=== PATIENT | male | born 1975 | race Two or more races ===

== ENCOUNTER 2020-06-28 13:51 | Observation (INO) | payer OTHER, SELFPAY ==
[2020-06-28] VITALS (14 sets, daily range): BP systolic 104–149; BP diastolic 57–76; PULSE 76–113; RESP 16–34; TEMP 36.7–38.1; O2SAT 92–97
--- NOTE | ~2020-06-28 | XR_ITS ---
XR chest 1V portable 06/28/2020 14:25 Indication: Shortness of breath Procedure: AP portable chest Comparison: 10/29/2017 Findings: There are patchy bilateral infiltrates predominantly affecting the mid and lower lungs. No significant effusion or pneumothorax. Heart size normal. Impression: 1: Patchy bilateral infiltrates, compatible with pneumonia. Reviewed, dictated and finalized at location A. THCARE ARCHITECT Impression: 1: Patchy bilateral infiltrates, compatible with pneumonia.
--- NOTE | ~2020-06-28 | CT_ITS ---
EXAMINATION: CTA chest PE protocol DATE: 06/30/2020 13:28 SIGNAL MAINTAINER HELPER INDICATION: Shortness of breath with chest pain with inspiration. TECHNIQUE: Computed tomographic angiography (CTA) of the chest was performed with 100 mL Omnipaque-35 0 intravenous contrast. The dose-length product was 368.71 mGy-cm. Maximum intensity projection 3D-re constructions of the aorta and other arteries were constructed by the technologist on a separate work station. Automated exposure control and iterative reconstruction technique were employed. COMPARISON: Chest x-ray dated 06/28/2020. FINDINGS: Study limited by motion artifact. No large central pulmonary embolism. Trace pleural effusi ons. Heart size normal. Mildly enlarged mediastinal lymph nodes. Prevascular space lymph node measure s 11 mm short axis. Upper abdomen is unremarkable. There is extensive patchy airspace consolidation, consistent with pneumonia. IMPRESSION: 1. No large central pulmonary embolism. Evaluation of peripheral pulmonary arteries limited by motion artifact. 2: Extensive patchy bilateral airspace consolidation, consistent with pneumonia. 3: Trace pleural effusions. 4: Mediastinal lymphadenopathy, likely reactive. Reviewed, dictated and finalized at location B. AL MAINTAINER HELPER IMPRESSION: 1. No large central pulmonary embolism. Evaluation of peripheral pulmonary nolan shereen limited by motion artifact. 2: Extensive patchy bilateral airspace consolidation, consistent with pneumoni a. 3: Trace pleural effusions. 4: Mediastinal lymphadenopathy, likely reactive.
--- NOTE | 2020-06-28 14:02 | ECG_ITS ---
Measurements Intervals [place] Rate: 93 P: 25 UT: 132 QRS: 30 QRSD: 82 T: 18 QT: 308 QTc: 385 Interpretive Statements SINUS RHYTHM BASELINE WANDER- I, II, III, AVR, AVL, AVF NORMAL ECG Electronically Signed On 06-28-2020 15:52:51 LAUNCH STEWARD by Cornelio Rosario D.O.
--- NOTE | 2020-06-28 14:06 | PC.NURSE ---
provider in room now.
--- NOTE | 2020-06-28 14:15 | ED.GENADULT ---
HPI - General Adult General Chief complaint: Upper Respiratory Infection Stated complaint: Covid Time Seen by Provider: 06/28/20 13:54 Source: patient Mode of arrival: ambulatory Limitations: no limitations History of Present Illness HPI narrative: This patient is a 44 year old Bangladeshi male who presents for evaluation of cough and shortness of breath. He states he developed symptoms on 06/25/20. His symptoms are cough, sore throat, body aches, nausea and shortness of breath. He was evaluated on and he was diagnosed with influenza and COVID. He was started on Tamiflu, albuterol inhaler and medrol dose pack. His symptoms are worsening. He denies vomiting, diarrhea, or chest pain. Related Data Home Medications Medication Instructions Recorded Confirmed Tamiflu 75 mg PO DAILY 06/28/20 06/28/20 albuterol sulfate puff PO Q4-5H PRN 06/28/20 methylprednisolone 4 mg PO TIDWMEAL 06/28/20 06/28/20 Allergies Allergy/AdvReac Type Severity Reaction Status Date / Time No Known Allergies Allergy Verified 06/28/20 18:39 Review of Systems Review of Systems: All systems reviewed & are unremarkable except as noted in HPI and below Constitutional: Constitutional: Reports chills and Reports fever(s) ENT: Reports sore throat Cardiovascular: Cardiovascular: Denies chest pain Respiratory: Respiratory: Reports cough and Reports dyspnea Gastrointestinal: Gastrointestinal: Denies abdominal pain, Denies diarrhea, Reports nausea and Denies vomiting PMFSH Past Medical History Medical History (Updated 06/28/20 @ 22:58 by Alyssa Mcgowan MD) Patient denies medical problems Surgical History Surgical History (Updated 06/28/20 @ 21:02 by Liana Gibson PA-C) No history of previous surgery Family History Family History (Updated 06/28/20 @ 21:02 by Liana Gibson PA-C) Other No significant family history Social History Social History (Updated 06/28/20 @ 21:03 by Liana Gibson PA-C) Social History: Patient lives in [place] with his brother and sister in law. His has recently returned back to [place], where he is from. Lifelong nonsmoker. He drinks perhaps 1 alcoholic beverage a week. No illicit substance use. He designates his brother as his surrogate decision maker and he wishes to be a full code. Substance use: never Spiritual care concerns: No Exam Const: General: alert and ill appearing Orientation/consciousness: patient oriented x3 HENMT: Head: atraumatic Mouth: Yes Normal oral and palatal mucosa present, Yes oropharynx normal and Yes moist mucous membranes Eyes: EOM: EOMs intact bilaterally Chest: Chest palpation & inspection: normal inspection of the chest Resp: Effort & Inspection: no retractions, tachypneic and no use of accessory muscles Auscultation: clear to auscultation bilaterally and no wheezes Cardio: Rate: tachycardic Rhythm: regular rhythm Heart sounds: Murmur heart sound present GI: GI Palp: Yes Soft to palpation, No Tenderness to palpation present (GI) and No Guarding due to palpation present (GI) Auscultation: normal bowel sounds Neuro: General: patient oriented x3, moves all extremities and CN's II-XI intact bilaterally Extrem: General: normal to inspection Course Consultations Consultation #1: I ambulated patient and he was tachypneic with walking. Once back in the bed pulse ox 93 % with HR 120. I Discussed case with Liana iGbson and she accepts patient to medical service for observation. Date: 06/28/20 Time: 15:49 Vital Signs Vital signs: Vital Signs Temperature 100.6 F H 06/28/20 13:54 Pulse Rate 106 H 06/28/20 13:54 Respiratory Rate 28 H 06/28/20 13:54 Blood Pressure 149/71 H 06/28/20 13:54 Pulse Oximetry 96 06/28/20 13:54 Temperature 98.1 F 06/28/20 20:00 Pulse Rate 76 06/28/20 20:00 Respiratory Rate 20 06/28/20 20:00 Blood Pressure 113/76 06/28/20 20:00 Pulse Oximetry 92 06/28/20 20:00
[2020-06-28] MEDS: ALBUTEROL SULFATE (*SP) AEROSOL 1 PUFF 6 PUFF INHALATION ×3 (14:25→20:32)
--- NOTE | 2020-06-28 14:30 | PM.IMHP ---
H&P: HPI History of Present Illness Date/Time: 06/28/20 14:45 Chief Complaint: Increasingly short of breath. Narrative: This is a pleasant 44-year-old male without significant medical problems who presented to the emergency department earlier today via private vehicle with complaints of increasing shortness of breath. Last weekend he was at a wedding and several days thereafter he and many of the guests developed respiratory symptoms to include dry cough, wheezing, sore throat, body aches, and nausea. He reportedly tested positive for COVID-19 and influenza on , 06/25/2020 and was prescribed Tamiflu, a Medrol Dosepak, and inhaler. Unfortunately he has become increasingly more short of breath over the past day or 2, despite taking the steroids and using the inhaler. While not hypoxic in the emergency department he was quite tachypneic, with respiratory rates in the mid to upper 30s with minimal activity and he is being admitted for observation overnight due to concerns of worsening illness. He has not had a fever to his knowledge and denies chest pain, pleuritic pain, palpitations, vomiting, and diarrhea. He is a nonsmoker and has no history of asthma or COPD. Review of Systems Review of Systems: Narrative: Twelve systems were reviewed with pertinent positives and negatives as per HPI. Except as documented, all other systems were reviewed and are negative. [facility] Past Medical History Medical History (Updated 06/28/20 @ 21:06 by Liana Gibson PA-C) Patient denies medical problems Surgical History Surgical History (Updated 06/28/20 @ 21:02 by Liana Gibson PA-C) No history of previous surgery Family History Family History (Updated 06/28/20 @ 21:02 by Liana Gibson PA-C) Other No significant family history Social History Social History (Updated 06/28/20 @ 21:03 by Liana Gibson PA-C) Social History: Patient lives in [place] with his brother and sister in law. His has recently returned back to [facility], where he is from. Lifelong nonsmoker. He drinks perhaps 1 alcoholic beverage a week. No illicit substance use. He designates his brother as his surrogate decision maker and he wishes to be a full code. Substance use: never Spiritual care concerns: No Meds Home Medications and Allergies Allergies Allergy/AdvReac Type Severity Reaction Status Date / Time No Known Allergies Allergy Verified 06/28/20 18:39 Vital Signs Vital Signs - 24 hr 06/28/20 13:54 06/28/20 13:57 06/28/20 13:58 Temperature 100.6 F H Pulse Rate 106 H 108 H 109 H Respiratory Rate 28 H 34 H 32 H Blood Pressure 149/71 H 149/71 H Pulse Oximetry 96 96 96 06/28/20 14:14 06/28/20 14:15 06/28/20 14:30 Temperature Pulse Rate 108 H 102 H 106 H Respiratory Rate 32 H 30 H 27 H Blood Pressure Pulse Oximetry 94 95 06/28/20 14:47 06/28/20 15:00 06/28/20 15:01 Temperature Pulse Rate 98 113 H 109 H Respiratory Rate 27 H 29 H 29 H Blood Pressure 128/68 Pulse Oximetry 94 96 06/28/20 15:31 06/28/20 15:51 06/28/20 16:00 Temperature Pulse Rate Respiratory Rate Blood Pressure Pulse Oximetry 95 92 95 06/28/20 16:40 Temperature 98.0 F Pulse Rate 82 Respiratory Rate 16 Blood Pressure 104/57 L Pulse Oximetry 97 Exam Narrative: Exam Narrative: General: Mildly ill-appearing male in the semi-Simmons position in bed in no distress. Weight: 82 kg. BMI: 30.1. HEENT: PERRL, EOMI. Sclerae anicteric. Oral mucosa a bit tacky. Oropharynx clear. Neck: Supple. No lymphadenopathy or JVD. Respiratory: Tachypneic with minimal activity,, for instance standing up to use the urinal. Mild conversational dyspnea. Crackles heard throughout both lungs with faint expiratory wheezing. Cardiovascular: Regular rate and rhythm with S1-S2. Gastrointestinal: Abdomen is soft, nontender, and nondistended with positive bowel sounds. Skin: Warm and dry. No rash or lesions o
[2020-06-28 14:43] LABS: Basophils Percent Auto 0.2 % (0.2-1.2); Hematocrit 43.3 % (42.0-52.0); Hemoglobin 14.4 g/dL (14.0-18.0); Immature Granulocyte Absolute 0.07 K/mm3 (0.00-0.031); Immature Granulocyte Percent A 0.6 % (0-0.5); Mean Corpuscular HGB Conc 33.3 g/dl (32-36); Mean Corpuscular Hemoglobin 27.9 pg (26-34); Mean Corpuscular Volume 83.9 fl (80-100); Mean Platelet Volume 10.1 fl (7.4-10.4); Monocytes Absolute Auto 0.5 K/mm3 (0.1-0.6); Monocytes Percent Auto 4.6 % (2.6-8.5); Neutrophils Absolute Auto 9.1 K/mm3 (1.3-6.7); Neutrophils Percent Auto 83.6 % (45.5-73.1); Platelet Count Result 343 k/mm3 (150-375); Red Blood Count 5.16 M/mm3 (4.6-6.20); Red Cell Distribution Width 13.2 % (11.5-14.5); White Blood Count 10.9 K/mm3 (4.5-10.0)
[2020-06-28] MEDS: LACTATED RINGERS 1,000 ML 999 ML IV CONT (14:47)
[2020-06-28] MEDS: ONDANSETRON INJ 4 MG/2 ML VIAL IV PUSH (14:47)
--- NOTE | 2020-06-28 14:47 | PC.NURSE ---
patient medicated as ordered. blood cultures drawn and sent to lab. respiratory in room for ABG's and neb treatment. patient will have MDI with spacer at bedside that he is to take home with him on discharge. patient updated on all orders and expected wait time.
[2020-06-28 14:53] LABS: Alanine Aminotransferase 60 U/L (4-50); Albumin Level 4.3 g/dL (3.5-5.1); Alkaline Phosphatase 98 U/L (38-126); Anion Gap 9 mmol/L (8-16); Aspartate Amino Transferase 69 U/L (17-59); Blood Urea Nitrogen 15 mg/dL (9-20); Calcium 9.1 mg/dL (8.4-10.2); Carbon Dioxide 27 mmol/L (22-30); Chloride 100 mmol/L (98-107); Estimated CRCL calculation 117 ml/min; Estimated Glomerular Filt Rate > 60; Glucose 125 mg/dL (75-110); Sodium 136 mmol/L (137-145)
--- NOTE | 2020-06-28 14:53 | PC.NURSE ---
patient's CXR done. shows pneumonia. patient on RA with good sats. no dyspnea seen.
[2020-06-28 14:55] LABS: CRP 8.3 mg/dL (<1.0)
[2020-06-28 14:57] LABS: Alveolar/Arterial O2 Gradient 51.6 mmHg; Base Excess ABG -1.6 mEq/l (+/-2.0); Carboxyhemoglobin 0.4 % THb (0-2.0); Fractional Inspired Oxygen 21 %; HCO3 ABG 21.2 mEq/l (22.0-26.0); Methemoglobin ABG 0.2 %THb (0-1.5); Oxygen Content ABG 16.9 %vol (16.0-22.0); Oxygen Saturation ABG 93.2 % (95.0-100.0); Oxyhemoglobin 91.7 % THb (90.0-100.0); PCO2 ABG 30.4 mmHg (35.0-45.0); PO2 ABG 61.7 mmHg (80.0-100.0); PO2 FiO2 Ratio Arterial Blood 2.94 %; Reduced Hemoglobin 7.7 %THb (0-5.0); Total Hemoglobin 13.1 g/dL (12.0-18.0); pH ABG 7.462 (7.350-7.450)
[2020-06-28 14:58] LABS: Device ROOM AIR; Site Drawn LEFT BRACHIAL
[2020-06-28 15:00] LABS: D Dimer 0.34 ug/mL (<0.48)
[2020-06-28 15:05] LABS: Troponin I < 0.012 ng/mL (0.000-0.034)
[2020-06-28 16:36] LABS: Add Urine Microscopic? YES; Appearance Urine Clear (Clear); Bacteria Urine Trace /hpf; Bilirubin Urine Negative (Negative); Blood Urine Negative (Negative); Color Urine Yellow (Yellow); Glucose Urine UA Negative (Negative); Ketones Urine Negative (Negative); Leukocyte Esterase Ur Negative LEU/UL (Negative); Mucus Urine Rare /lpf; Nitrate Urine Negative (Negative); Protein Urine 1+ mg/dL (Negative); RBC Urine 0-2 /hpf (0-2); Specific Grav Ur 1.024 (1.001-1.035); Urobilinogen Urine Negative mg/dL (<2.0); WBC Urine 0-3 /hpf
--- NOTE | 2020-06-28 17:48 | PC.NURSE ---
This patient, Leeann Briseno, was admitted to [facility] Room 310-01. Patient/family oriented to hospital policies and general routines including ID bracelet, bed and alarms, visiting hours, pain management, procedures, bathroom and other care routines, personal items, smoking policy, room service/diet, and visiting hours. Information on how to activate the Rapid Response Team has been discussed. Patient/Family are encouraged to report perceived risks to care and to ask questions if they do not understand what they are told or what they should do.
[2020-06-28] MEDS: SODIUM CHLORIDE 0.9% IV 1,000 ML 125 ML IV CONT (18:40)
[2020-06-29] VITALS (10 sets, daily range): BP systolic 103–126; BP diastolic 59–71; PULSE 74–103; RESP 16–22; TEMP 36.2–39.6; O2SAT 91–98
[2020-06-29] MEDS: ACETAMINOPHEN 325 MG TABLET 650 MG PO ×2 (00:39→14:38)
[2020-06-29 06:18] LABS: Basophils Percent Auto 0.1 % (0.2-1.2); Hematocrit 36.2 % (42.0-52.0); Hemoglobin 12.1 g/dL (14.0-18.0); Immature Granulocyte Absolute 0.08 K/mm3 (0.00-0.031); Lymphocytes Absolute Auto 1.14 K/mm3 (0.9-3.2); Lymphocytes Percent Auto 13.6 % (18.3-44.2); Mean Corpuscular HGB Conc 33.4 g/dl (32-36); Mean Corpuscular Hemoglobin 27.8 pg (26-34); Mean Corpuscular Volume 83.2 fl (80-100); Mean Platelet Volume 10.2 fl (7.4-10.4); Monocytes Absolute Auto 0.3 K/mm3 (0.1-0.6); Monocytes Percent Auto 4.1 % (2.6-8.5); Neutrophils Absolute Auto 6.8 K/mm3 (1.3-6.7); Neutrophils Percent Auto 81.2 % (45.5-73.1); Platelet Count Result 273 k/mm3 (150-375); Red Blood Count 4.35 M/mm3 (4.6-6.20); White Blood Count 8.4 K/mm3 (4.5-10.0)
[2020-06-29 06:36] LABS: Alanine Aminotransferase 48 U/L (4-50); Albumin Level 3.3 g/dL (3.5-5.1); Alkaline Phosphatase 93 U/L (38-126); Anion Gap 6 mmol/L (8-16); Aspartate Amino Transferase 52 U/L (17-59); Bilirubin,Total 0.8 mg/dL (0.2-1.3); Blood Urea Nitrogen 11 mg/dL (9-20); CRP 8.6 mg/dL (<1.0); Calcium 8.1 mg/dL (8.4-10.2); Carbon Dioxide 24 mmol/L (22-30); Chloride 103 mmol/L (98-107); Estimated CRCL calculation 134 ml/min; Estimated Glomerular Filt Rate > 60; Glucose 118 mg/dL (75-110); Lactate Dehydrogenase 716 U/L (313-618); Potassium 4.2 mmol/L (3.4-5.0); Sodium 133 mmol/L (137-145)
--- NOTE | 2020-06-29 08:00 | PC.NURSE ---
Patient's med rec was filled out at the start of the shift using the medications he had in his personal belongings bag. There were only 3 medications and he stated that they had only been given to him since his initial diagnosis. He denied pain or sob at rest. He stated that he had a severe chill and his temp spiked at 104 degrees. After taking his blankets and administering 650 mg of tylenol, he trended downward to a temp of 98.5 by the end of the shift.
[2020-06-29] MEDS: OSELTAMIVIR PHOSPHATE 75 MG CAPSULE PO (08:58)
[2020-06-29] MEDS: ALBUTEROL SULFATE (*SP) AEROSOL 1 PUFF 6 PUFF INHALATION ×4 (08:58→21:13)
[2020-06-29] MEDS: ENOXAPARIN 40 MG/0.4 ML SYRINGE SUB-Q ×2 (08:58→20:58)
[2020-06-29] MEDS: methylPREDNISolone 4 MG TABLET PO ×2 (08:59→20:59)
[2020-06-29] MEDS: guaiFENesin 12 HR 600 MG TABCR PO ×2 (08:59→20:58)
--- NOTE | 2020-06-29 16:10 | PM.IMPN ---
Progress Note: A&P Assessment and Plan (1) SIRS (systemic inflammatory response syndrome): Code(s): R65.10 - Systemic inflammatory response syndrome (SIRS) of non-infectious origin without acute organ dysfunction Status: Acute Assessment and Plan: The patient meets criteria for sirs in the setting of fever, tachycardia, tachypnea, with having positive influenza and COVID-19. He had a fever 103 this morning. Continue p.r.n. Tylenol and monitoring vital signs. He will have to be afebrile for 24-48 hours prior to considering discharge. (2) COVID-19: Code(s): U07.1 - COVID-19 Status: Acute Assessment and Plan: Patient reports having positive for post COVID and influenza this past 06/25/2020. I will ask for records for confirmation of this diagnosis and in the interim he has been started on empiric antibiotics given bilateral pneumonia. I will continue with his Medrol Dosepak and rescue inhaler. Incentive spirometer DuoNebs have also been scheduled q.6 hours. Mucinex and Cornet to help mobilize secretions. At this time he would not be a candidate for dexamethasone or remdesivir as he is not hypoxic, however we do not yet have confirmation that he indeed tested positive for COVID. Due to his tachypnea with just even sitting up in bed, a ordered some orthostatics to be done we can monitor his blood pressure, heart rate and oxygen saturations with laying, sitting, standing, and walking around the room. Want to ensure he is not hypoxic with exertion. Continue monitoring. P.r.n. Tylenol. (3) Influenza: Code(s): J11.1 - Influenza due to unidentified influenza virus with other respiratory manifestations Status: Acute Assessment and Plan: See above. (4) Bilateral pneumonia: Code(s): J18.9 - Pneumonia, unspecified organism Status: Acute Assessment and Plan: See above. Time Spent With Patient Time with patient: 25 - 35 minutes Subjective Date/time seen: 06/29/20 16:10 Interval history: Date of Service 06/29/20: Patient reports intermittent fevers every few hours. Tylenol has been helping. He does report some shortness of breath with any movement, even sitting up in bed. It takes him a couple seconds to catch his breath and then he is able to breathe easier. He states he is unable to hold his breath secondary to some discomfort and SOB. He does have a dry cough, loss of taste, smell, and feels very thirsty. He denies any nausea, vomiting, abdominal pain, leg swelling, calf pain or any other symptoms at this time. Review of Systems Review of Systems: All systems reviewed & are unremarkable except as noted in HPI and below Exam Narrative: Exam Narrative: General: 44-year-old man laying flat in bed, resting. Appears comfortable. In no acute distress. Skin: No jaundice or cyanosis. Good skin turgor. Neck: Full range of motion. Supple. Respiratory: Appears comfortable wall laying in bed, non tachypneic. When he sits up in bed he does become tachypneic and appears to be uncomfortable with his breathing but after a few seconds it becomes easier. Lungs are clear to auscultation bilaterally. No wheezing, rales or rhonchi. No bony chest wall tenderness. Cardiovascular: The heart has a regular rate and rhythm without murmur. Lower extremities: No lower extremity edema. Distal pulses are easily palpated. No calf tenderness to palpation. Gastrointestinal: The abdomen is soft, nontender and nondistended with active bowel sounds. Psychiatric: Lucid and oriented. Memory intact. Neurologic: No focal deficits. Speech is clear. No facial drooping. Objective Data Vital Signs Vital Signs: Vital Signs - 24 hr 06/28/20 16:40 06/28/20 20:00 06/29/20 00
[2020-06-30] VITALS: BP 98/53; PULSE 77; RESP 16; TEMP 36.5; O2SAT 100
[2020-06-30 04:00] VITALS: BP 96/56; PULSE 80; RESP 16; TEMP 36.9; O2SAT 96
[2020-06-30 07:36] LABS: Hematocrit 36.7 % (42.0-52.0); Hemoglobin 12.3 g/dL (14.0-18.0); Mean Corpuscular HGB Conc 33.5 g/dl (32-36); Mean Corpuscular Hemoglobin 27.5 pg (26-34); Mean Corpuscular Volume 81.9 fl (80-100); Mean Platelet Volume 10.5 fl (7.4-10.4); Platelet Count Result 312 k/mm3 (150-375); Red Blood Count 4.48 M/mm3 (4.6-6.20); Red Cell Distribution Width 12.9 % (11.5-14.5); White Blood Count 5.6 K/mm3 (4.5-10.0)
[2020-06-30 07:37] LABS: Alanine Aminotransferase 49 U/L (4-50); Albumin Level 3.4 g/dL (3.5-5.1); Alkaline Phosphatase 95 U/L (38-126); Anion Gap 6 mmol/L (8-16); Aspartate Amino Transferase 45 U/L (17-59); Bilirubin,Total 0.5 mg/dL (0.2-1.3); Blood Urea Nitrogen 11 mg/dL (9-20); CRP 8.6 mg/dL (<1.0); Calcium 8.4 mg/dL (8.4-10.2); Carbon Dioxide 25 mmol/L (22-30); Chloride 104 mmol/L (98-107); Estimated CRCL calculation 158 ml/min; Estimated Glomerular Filt Rate > 60; Glucose 120 mg/dL (75-110); Lactate Dehydrogenase 639 U/L (313-618); Potassium 4.4 mmol/L (3.4-5.0); Sodium 135 mmol/L (137-145)
[2020-06-30 08:00] VITALS: BP 102/60; PULSE 76; RESP 16; TEMP 36.4; O2SAT 95; O2SAT 97
[2020-06-30 08:54] VITALS: O2SAT 98
[2020-06-30] MEDS: guaiFENesin 12 HR 600 MG TABCR PO (09:45)
[2020-06-30] MEDS: OSELTAMIVIR PHOSPHATE 75 MG CAPSULE PO (09:45)
[2020-06-30] MEDS: ENOXAPARIN 40 MG/0.4 ML SYRINGE SUB-Q (09:45)
[2020-06-30] MEDS: methylPREDNISolone 4 MG TABLET PO (09:47)
[2020-06-30] MEDS: ALBUTEROL SULFATE (*SP) AEROSOL 1 PUFF 6 PUFF INHALATION ×2 (09:47→12:00)
--- NOTE | 2020-06-30 11:20 | PM.DS ---
DS: Admitting Diagnosis Admitting Diagnosis Admitting Diagnosis: COVID 19 pneumonia, Influenza DS: Discharge Diagnosis Discharge Diagnosis (1) SIRS (systemic inflammatory response syndrome): Code(s): R65.10 - Systemic inflammatory response syndrome (SIRS) of non-infectious origin without acute organ dysfunction Status: Acute Assessment and Plan: The patient meets criteria for sirs in the setting of fever, tachycardia, tachypnea. Respiratory as suspected source with positive COVID and Flu B per PCP records; these are rapid tests, thus they do not have documentation other than from their notes. Tachycardia, tachypnea, and fevers have improved Continue supportive care and treatment for Flu with Tamiflu F/u with PCP (2) COVID-19: Code(s): U07.1 - COVID-19 Status: Acute Assessment and Plan: With evidence of pneumonia on CXR. He is not hypoxic and tolerating RA at this time. Patient reports having positive for post COVID and influenza this past 06/25/2020. PCP confirms testing but unable to provide documentation given they are rapid tests. He is not a candidate for remdesivir as he is not hypoxic. PE felt to be less likely as etiology of symptoms, but will obtain CTA chest to r/o (this was negative for PE) Continue Medrol Dosepak Continue IS/Cornet Continue supportive care with tylenol, albuterol, and mucinex at discharge Obtain CTA chest to r/o PE given his pleuritic chest pain and SOB - this was negative for PE F/u with PCP (3) Influenza: Code(s): J11.1 - Influenza due to unidentified influenza virus with other respiratory manifestations Status: Acute Assessment and Plan: Please see above a/p. Continue Tamiflu F/u with PCP (4) Bilateral pneumonia: Code(s): J18.9 - Pneumonia, unspecified organism Status: Acute Assessment and Plan: Likely due to above. f/u with PCP DS: Summary Hospital Course Reason for hospitalization: COVID pneumonia, Influenza Hospital Course: Date of arrival: 06/28/20 Date of discharge: 06/30/20 Patient is a 44-year-old male without significant medical problems who presented to the emergency department on 06/28 via private vehicle with complaints of increasing shortness of breath. Last weekend he was at a wedding and several days thereafter he and many of the guests developed respiratory symptoms to include dry cough, wheezing, sore throat, body aches, and nausea. He reportedly tested positive for COVID-19 and influenza on 06/25/2020 and was prescribed Tamiflu, a Medrol Dosepak, and inhaler. Unfortunately he became increasingly more short of breath over the previous day or 2, despite taking the steroids and using the inhaler. While he was not hypoxic in the emergency department he was quite tachypneic, with respiratory rates in the mid to upper 30s with minimal activity and he is being admitted under setting of concerns of worsening illness. Please see H&P for further details Patient was admitted to the hospitalist service for further management/treatment. He was continued on his Tamiflu and Medrol Dosepak during his stay. He was also placed on Rocephin and azithromycin until his COVID test and Influenza B positive tests were confirmed with his primary; this was confirmed on 06/30. Patient remained on RA during stay and maintained adequate saturations. His symptoms somewhat improved, but did report some midsternal chest pain when taking deep inspirations, thus a CTA chest was performed on 06/30 to rule out PE; this was negative for PE. Given improvement in symptoms, plan was for him to finish his Tamiflu treatment, and continue with dexamethasone 6 mg daily for 5 days. He was to continue with supportive care with Tylenol, mucinex and albuterol inhal
[2020-06-30 12:00] VITALS: BP 108/60; PULSE 75; RESP 16; TEMP 36.4; O2SAT 97
== END 2020-06-30 17:20 | disposition home or self-care (01) ==
LOC: ANHED 14:29 → ANH3MEDSUR 16:37
PROVIDERS: Physician Assistant; Admitting Provider Internal Medicine; Emergency Provider General Practice; PCP Internal Medicine; Visit Provider Physician Assistant
DX: U07.1 COVID-19 (principal); A41.9 Sepsis, unspecified organism; J12.82 Pneumonia due to coronavirus disease 2019; J11.1 Influenza due to unidentified influenza virus with other respiratory manifestations
CPT/HCPCS: 36415; 36600; 71045; 71275; 80053; 81001; 82375; 82728; 82805; 83050; 83605; 83615; 83735; 84484; 85025; 85027; 85380; 85610; 85730; 86140; 87040; 87070; 87205; 93005; 94668; 96361; 96365; 96366; 96367; 96372; 96375; 99285; A9270; G0378; G0379; J0131; J0456; J0696; J1650; J2405; J7030; J7120; Q9967